=== PATIENT | female | born 1985 | race Caucasian/White ===

== ENCOUNTER → 2017-02-02 | Outpatient (REF) | payer OTHER ==
[2017-02-03 09:16] LABS: CONTROL LINE HPYORI INT CTR LINE PRESENT
== END ==
LOC: M LAB REF 16:33
PROVIDERS: ATTEND Internal Medicine
DX: R10.9 Unspecified abdominal pain (principal)

== ENCOUNTER → 2019-03-20 | Outpatient (REF) | payer OTHER | LOC: M SFHCLERA 20:27 | PROVIDERS: ATTEND Nurse Practitioner Family | DX: R68.89 Other general symptoms and signs (principal) ==

== ENCOUNTER → 2022-03-31 | Outpatient (REF) | payer OTHER ==
[2022-04-04 14:08] LABS: ANTINUCLEAR ANTIBODIES DIRECT Negative (Negative); CYCLIC CITRULLINATED PEPTIDE 4 units (0-19)
== END ==
LOC: M LAB REF 15:53
PROVIDERS: ATTEND Internal Medicine
DX: M25.50 Pain in unspecified joint (principal)

== ENCOUNTER → 2023-12-28 | Outpatient (REF) | payer OTHER | LOC: M LAB REF 16:30 | PROVIDERS: ATTEND Nurse Practitioner Family | DX: R07.0 Pain in throat (principal) ==

== ENCOUNTER → 2024-09-17 | Outpatient (REF) | payer OTHER | LOC: M LAB REF 13:42 | PROVIDERS: ATTEND Internal Medicine | DX: N39.0 Urinary tract infection, site not specified (principal) ==

== ENCOUNTER → 2024-10-21 | Outpatient (CLI) | payer OTHER | LOC: M RAD 11:52 | PROVIDERS: ATTEND Internal Medicine | DX: N28.1 Cyst of kidney, acquired (principal) ==